=== PATIENT | female | born 1990 | race American Indian/Alaskan Native ===

== ENCOUNTER 2020-05-09 13:51 | Emergency (ER) | payer SELFPAY ==
--- NOTE | 2020-05-09 14:12 | Emergency Department Report ---
ED Psych HPI - General Chief Complaint: Medical Clearance Stated Complaint: PSYCH Time Seen by Provider: 05/09/20 14:10 Source: EMS Mode of arrival: Ambulatory - History of Present Illness Initial Comments: Patient is a 29-year-old female with a history of OCD who presents to the emergency department with complaint of suicidal ideations. Patient states that she has a plan to go to a pond shop and buy a gun to kill herself. Patient states that she does have a history of OCD and is currently on exposure therapy. She was not discussed with me what her exposure therapy is but states that she attempted to practice this without her psychiatrist as this was instructed for her today. After that she felt suicidal. She reports a mild headache from crying but has no other symptoms. - Related Data Home Medications Medication Instructions Recorded Confirmed Last Taken No Known Home Medications [No 05/09/20 05/09/20 Unknown Reported Home Medications] Allergies Allergy/AdvReac Type Severity Reaction Status Date / Time No Known Allergies Allergy Unverified 08/19/13 12:27 ED Review of Systems ROS: Stated complaint: PSYCH Other details as noted in HPI Constitutional: no symptoms reported Eyes: as per HPI ENT: as per HPI Respiratory: no symptoms reported Cardiovascular: denies: chest pain Endocrine: no symptoms reported Gastrointestinal: denies: abdominal pain, nausea, vomiting Genitourinary: denies: dysuria Musculoskeletal: denies: back pain Skin: denies: rash Neurological: headache Psychiatric: as per HPI, suicidal thoughts Hematological/Lymphatic: denies: easy bleeding ED Past Medical Hx - Social History Smoking Status: Unknown if ever smoked - Medications Home Medications: Home Medications Medication Instructions Recorded Confirmed Last Taken Type No Known Home Medications [No 05/09/20 05/09/20 Unknown History Reported Home Medications] ED Physical Exam - General Limitations: No Limitations General appearance: alert - Head Head exam: Present: atraumatic, normocephalic - Eye Eye exam: Present: normal appearance Pupils: Present: normal accommodation - ENT ENT exam: Present: normal exam - Neck Neck exam: Present: normal inspection - Respiratory Respiratory exam: Present: normal lung sounds bilaterally. Absent: respiratory distress - Cardiovascular Cardiovascular Exam: Present: regular rate, normal rhythm, normal heart sounds - GI/Abdominal GI/Abdominal exam: Present: soft. Absent: distended, tenderness - Rectal Rectal exam: Present: deferred - Extremities Exam Extremities exam: Present: normal inspection - Back Exam Back exam: Present: normal inspection - Neurological Exam Neurological exam: Present: alert - Psychiatric Psychiatric exam: Present: suicidal ideation ED Course Vital Signs 05/09/20 05/09/20 05/09/20 14:14 14:26 15:31 Temperature 97.9 F 98.7 F Pulse Rate 67 62 Respiratory 20 18 20 Rate Blood Pressure 127/75 105/69 [Left] O2 Sat by Pulse 98 99 96 Oximetry 05/09/20 20:22 Temperature 98.6 F Pulse Rate 63 Respiratory 18 Rate Blood Pressure 115/81 [Left] O2 Sat by Pulse 100 Oximetry - Reevaluation(s) Reevaluation #1: 05/09/20 1400 Patient has been medically clear. ED Medical Decision Making - Lab Data Result diagrams: 05/09/20 14:35 05/09/20 14:35 - EKG Data -: EKG Interpreted by Me EKG shows normal: sinus rhythm Rate: normal - EKG Data When compared to previous EKG there are: previous EKG unavailable Interpretation: nonspecific ST-T wave nemo 05/09/20 16:34 Normal early repol pattern - Medical Decision Making Patient is a 29-year-old female with history of OCD undergoing exposure therapy. She states that she was practicing exposure therapy on her own. She developed feelings of suicidal ideations after doing this. Reports that she would like to shoot herself after buying a gun from a pawn shop. Plan for patient to undergo medical clearance and then she will be placed on a 1013 hold for psychiatric evaluation and possible transfer to a psychiatric facility inpatient. Critical care attestation.: If time is entered above; I have spent that time in minutes in the direct care of this critically ill patient, excluding procedure time. ED Disposition Clinical Impression: Suicidal ideation Disposition: [id number] PSY HOSP/PSY UNIT Is pt being admited?: No Does the pt Need Aspirin: No Condition: Stable Referrals: PRIMARY CARE, [Primary Care Provider] - 3-5 Days
[2020-05-09 14:32] LABS: Bacteria,Urine 1+ /HPF (Negative); Bilirubin,Urine NEG (Negative); Blood,Urine NEG (Negative); Color,Urine Yellow (Yellow); HCG Qualitative,Urine Negative (Negative); Protein,Urine <15 mg/dL mg/dL (Negative); Urobilinogen,Urine < 2.0 mg/dL (<2.0)
[2020-05-09 14:47] LABS: Basophils # (Auto) 0.1 K/mm3 (0.0-0.1); Basophils % (Auto) 0.6 % (0.0-1.8); Eosinophils # (Auto) 0.2 K/mm3 (0.0-0.4); Eosinophils % (Auto) 1.9 % (0.0-4.3); Hematocrit 39.7 % (30.3-42.9); Hemoglobin 12.9 gm/dl (10.1-14.3); Lymphocytes # (Auto) 1.7 K/mm3 (1.2-5.4); Lymphocytes % (Auto) 19.9 % (13.4-35.0); Mean Corpuscular HGB Conc 32 % (30-34); Mean Corpuscular Volume 81 fl (79-97); Monocytes # (Auto) 0.5 K/mm3 (0.0-0.8); Monocytes % (Auto) 5.9 % (0.0-7.3); Platelet Count 258 K/mm3 (140-440); Red Blood Count 4.91 M/mm3 (3.65-5.03); Red Cell Distribution Width 15.6 % (13.2-15.2)
[2020-05-09 15:05] LABS: Blood Urea Nitrogen 13 mg/dL (7-17); Calcium 9.5 mg/dL (8.4-10.2); Hemolysis Index 9
[2020-05-09 15:15] LABS: BUN/Creatinine Ratio 22
[2020-05-09 15:19] LABS: Amphetamine Screen,Urine Negative; Benzodiazepines Screen,Urine Negative; Cannabinoid Screen,Urine Negative; Cocaine Screen,Urine Negative; Methadone Screen,Urine Negative; Opiate Screen,Urine Negative
--- NOTE | 2020-05-10 08:30 | Consultation ---
History of Present Illness - Reason for Consult Consult date: 05/10/20 Reason for consult: [facility] Requesting physician: KIERA LOVETT - History of Present Psychiatric Illness Per ED Provider: Patient is a 29-year-old female with a history of OCD who presents to the emergency department with complaint of suicidal ideations. Patient states that she has a plan to go to a pond shop and buy a gun to kill herself. Patient states that she does have a history of OCD and is currently on exposure therapy. She was not discussed with me what her exposure therapy is but states that she attempted to practice this without her psychiatrist as this was instructed for her today. After that she felt suicidal. She reports a mild headache from crying but has no other symptoms. Per [facility]: Pt is a 29 year old AA female; Per triage note, "Brought in by [facility] for psych eval, hx of OCD and Exposure therapy, here for Suicidal ideation."Pt reports that she has "POCD; it's Pedophile obsessive compulsive disorder... I was diagnosed about three weeks ago; I reached out to a therapist, and she confirmed it." Pt reports that she had never seen a therapist or had any diagnosis before 3 weeks ago. Pt reports, "I've been having this since I was 13 years old; I was doing research, and I found out that what I have is an actual disorder, and it told me how I can get help, and I reached out to my therapist." Pt has no history of inpatient psyc treatment. Pt reports that she has never harmed a child; "I've been able to control the thoughts, but today, I couldn't fight them anymore. I just wanted to because I'm so tired of fighting it." Pt has never been prescribed any psych meds; "I was trying to do the exposure therapy before I went to the meds, but now my options are open if that's what it takes." Pt is alert and oriented x 4. Pt reports intrusive auditory command hallucinations to sexually assault young girls; pt reports the thoughts are severely debilitating and causing the SI that she is currently experiencing. Pt has good attention and focus. Pt reports, "at times, I have paranoia. Sometimes, I think that parents with kids can tell that I'm having the OCD thoughts." Pt resides with friends in a home in [place]. Pt is currently unemployed. Pt reports no substance abuse. Pt reports she is currently suicidal; "my therapy triggered it yesterday I think. Yesterday, I tried exposure reaction prevention therapy. It was the very first time I had done that therapy." "I called suicide prevention, and they called mobile crisis, and they said I needed to go to the hospital. I knew if I drove I had a plan to kill myself today. I knew the gun store was very close to me, and I knew I wouldn't drive to the hospital, I wanted to drive to the gun store." Pt reports that she has attempted to harm herself in the past; "back in 2011, I was in college, and I was cutting myself, burning myself, having suicidal thoughts. I didn't seek help though, even though I should have." "I'm drowning in these thoughts, and I don't want them." Pt endorses that she has severe anxiety. "My therapist said that I have depressive moods. I have days yolis t are really really bad; I can't get up or do anything, but then some days it is regular." Pt reports no thoughts or plans to kill others. PSYCH HPI Patient is a 29-year-old, currently unemployed without SSI, single - [place] female who currently resides with friends with no significant past medical history of past psychiatric history who presented to the ED with chief complaint of suicidal ideation accompanied with suicidal plan. Patient reports for years she has been suffering from an obsession in which the father cells and desire to have sex with pedophiles and after researching about this thoughts online she found a [employer] that she contacted and recently started seeing a therapist to the [employer] [employer]. Patient reported having a 1st exposure therapy about 3 days ago which was too much for her to be a mentally, and while at home yesterday morning when she woke up she just ended having the suicidal thoughts, with plan to go to a gun store by gun and shoot herself so that he can all go away. Then prior to doing that she gave a therapist to call with recommended the patient called the crisis line and that was how she ended up being brought to the ER. Today patient reports she is feeling much better, said these thoughts are not as strong as they were initially and does not have an active wish to kill herself. She reported she has never seen a psychiatrist before, she was diagnosed with having the. For obsessive-compulsive disorder by therapist and not a psychiatrist and is not currently taking any medication. She denies any history of illicit drug use. PAST PSYCHIATRIC HISTORY Diagnoses: None reported Suicide attempts or Self-harm behavior: None reported Prior psychiatric hospitalizations: None reported Substance Abuse history: None reported Previous psychiatric medications tried: None reported Outpatient treatment: None reported PAST MEDICAL HISTORY: None reported Family Psychiatric History: None reported or documented SOCIAL HISTORY Marital Status: single Living Arrangements: with friends Employment Status: unemployed Access to guns/weapons: None reported [place] [employer] [place] of Abuse: None reported Legal History: None reported REVIEW OF SYSTEMS Constitutional: Negative for weight loss ENT: Negative for stridor Respiratory: Negative for cough or hemoptysis All other systems reviewed and are negative MENTAL STATUS EXAMINATION General Appearance and Behavior: Age appropriate, good hygiene, wearing appropriate clothes, good eye contact, cooperative polite with questioning. Cooperation: Participating/engaged Psychomotor Behavior: unremarkable and within normal limits Mood: Good Affect and affective range: congruent with mood Thought Process: Fluent/Logical, Thought Content: Within reality, Speech: Normal volume, Regular rate and rhythm, Intellectual Functioning: Average Suicidal Ideation: Denies SI Homicidal Ideation: Denies HI Impulse Control: Unimpaired Insight and Judgment: Normal insight and judgment, Memory: Normal, Attention: Normal, Orientation: Alert, oriented, Assessment and Plan - Psychiatric problem (1) Unspecified episodic mood disorder Current Visit: Yes Status: Acute F39 Treatment Plan Patient currently does not have insurance or any outpatient psychiatric follow- up at this time, based on acute mental stress disorder combined with plkan to go to a gun store and buy a gun, will recommend inpatient and start patient on valproate MEDICATIONS: Risks, benefits and alternatives of medications discussed with the patient, questions answered and consent obtained from patient. PSYCHOTHERAPY: Supportive psychotherapy provided MEDICAL: Per primary team DELIRIUM PRECAUTIONS: Please re-orient patient frequently, keep lights on during the day, and minimize benzodiazepines and opiates as these medications could worsen patient's confusion. 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 Case discussed with Dr. Cordero who agrees with current disposition LEGAL STATUS: 1013 FOLLOW-UP: Will follow Thank you for the consult. Please contact with any questions and/or concerns. Medications and Allergies Allergies Allergy/AdvReac Type Severity Reaction Status Date / Time No Known Allergies Allergy Unverified 08/19/13 12:27 Home Medications Medication Instructions Recorded Confirmed Last Taken Type No Known Home Medications [No 05/09/20 05/09/20 Unknown History Reported Home Medications] Mental Status Exam - Vital signs Last Vital Signs Temp 98.6 F 05/09/20 20:22 Pulse 63 05/09/20 20:22 Resp 18 05/09/20 20:22 BP 115/81 05/09/20 20:22 Pulse Ox 100 05/09/20 20:22 Results Result Diagrams: 05/09/20 14:35 05/09/20 14:35 Abnormal lab results 05/09/20 05/09/20 05/09/20 Range/Units 14:35 14:35 14:35 MCH (28-32) pg RDW (13.2-15.2) % Seg Neutrophils % (40.0-70.0) % Sodium 136 L (137-145) mmol/L Salicylates < 0.3 L (2.8-20.0) mg/dL Acetaminophen 5.0 L (10.0-30.0) ug/mL 05/09/20 Range/Units 14:35 MCH 26 L (28-32) pg RDW 15.6 H (13.2-15.2) % Seg Neutrophils % 71.7 H (40.0-70.0) % Sodium (137-145) mmol/L Salicylates (2.8-20.0) mg/dL Acetaminophen (10.0-30.0) ug/mL All other labs normal. Assessment and Plan - Psychiatric problem (1) Unspecified episodic mood disorder Current Visit: Yes Status: Acute
[2020-05-10 09:41] VITALS: BP 110/79
[2020-05-10] MEDS ORDERED: VALPROIC ACID 250 MG CAP PO SCH (10:00)
== END 2020-05-10 16:30 ==
LOC: ED 13:51
DX: R45.851 Suicidal ideations (principal)
CPT/HCPCS: 36415; 80048; 80307; 80320; 81001; 81025; 85025; 93005; G0480